=== PATIENT | female | born 1975 ===

== ENCOUNTER 2017-01-13 13:52 | Emergency (ER) | payer MEDICAID ==
[2017-01-13 14:06] VITALS: BP 130/77; PULSE 72; RESP 18; TEMP 98; O2SAT 100
--- NOTE | 2017-01-13 14:20 | ED PDOC ---
HPI: CCC, URI, Sore Throat Time Seen by Provider: 01/13/17 14:07 Chief Complaint (Nursing): Cough, Cold, Congestion Chief Complaint (Provider): Cough History Per: Patient History/Exam Limitations: no limitations Onset/Duration Of Symptoms: Days (x1 week) Associated Symptoms: Fever, Sore Throat, Cough (dry). denies: Sputum Additional Complaint(s): Zora Orellana is a 41 year old female, with a past medical history of migraines , who presents to the emergency department complaining of a dry cough onset for 1 week associated with a sore throat. Patient states that last week she had a fever that peaked at 101.4. She reports to have had sick contact with someone who had the flu. No further medical complaints. PMD: None provided Past Medical History Reviewed: Historical Data, Nursing Documentation, Vital Signs Vital Signs: Last Vital Signs Temp 98 F 01/13/17 14:02 Pulse 72 01/13/17 14:02 Resp 18 01/13/17 14:02 BP 130/77 01/13/17 14:02 Pulse Ox 100 01/13/17 15:49 - Medical History PMH: Migraine - Family History Family History: States: Unknown Family Hx - Immunization History Hx Tetanus Toxoid Vaccination: No Hx Influenza Vaccination: No Hx Pneumococcal Vaccination: No - Home Medications Home Medications: Ambulatory Orders Medication Instructions Recorded Azithromycin [Zithromax] 250 mg PO DAILY #6 cap 01/25/15 Codeine Phos/Phenyleph HCl/P 5 ml PO Q6H #100 syr 01/25/15 [Phenergan Vc W/Codeine 120 ml] Ibuprofen [Motrin] 600 mg PO Q8 #30 tab 04/17/15 Oxycodone HCl/Acetaminophen 1 tab PO Q6 PRN #5 tab 04/17/15 [Percocet 325 mg-5 mg] Acetaminophen with Codeine 1 tab PO DAILY #5 tab 06/30/16 [Tylenol with Codeine No. 3 300 mg-30 mg] Albuterol HFA [Ventolin HFA 90 2 puff IH Q6 #200 puff 01/13/17 mcg/actuation (8 g)] Pseudoephed/Codeine/Guaifen 10 ml PO BID #473 ml 01/13/17 [Coditussin DAC Liquid] - Allergies Allergies/Adverse Reactions: Allergies Allergy/AdvReac Type Severity Reaction Status Date / Time No Known Allergies Allergy Verified 06/30/16 18:30 Review of Systems ROS Statement: Except As Marked, All Systems Reviewed And Found Negative Constitutional: Positive for: Fever ENT: Positive for: Throat Pain Respiratory: Positive for: Cough. Negative for: Sputum Physical Exam - Reviewed Nursing Documentation Reviewed: Yes Vital Signs Reviewed: Yes - Physical Exam Appears: Positive for: Well, Non-toxic, No Acute Distress Head Exam: Positive for: ATRAUMATIC, NORMAL INSPECTION, NORMOCEPHALIC Skin: Positive for: Normal Color, Warm, Dry Eye Exam: Positive for: EOMI, Normal appearance, PERRL ENT: Positive for: Normal ENT Inspection Neck: Positive for: Normal, Painless ROM Cardiovascular/Chest: Positive for: Regular Rate, Rhythm Respiratory: Positive for: Normal Breath Sounds. Negative for: Respiratory Distress Neurologic/Psych: Positive for: Alert, Oriented - ECG O2 Sat by Pulse Oximetry: 100 (RA) Pulse Ox Interpretation: Normal - Radiology X-Ray: Interpreted by Me X-Ray Interpretation: No Acute Disease Medical Decision Making Medical Decision Making: Initial Impression: Cough Initial Plan: --Chest two views (PA/LAT) [RAD] --reevaluation Scribe Attestation: Documented by Ortiz Maynard, acting as a scribe for Myrna STONER. Provider Scribe Attestation: All medical record entries made by the Scribe were at my direction and personally dictated by me. I have reviewed the chart and agree that the record accurately reflects my personal performance of the history, physical exam, medical decision making, and the department course for this patient. I have also personally directed, reviewed, and agree with the discharge instructions and disposition. Disposition - Clinical Impression Clinical Impression: Cough, Bronchitis - Patient ED Disposition Is Patient to be Admitted: No - Disposition Disposition: Routine/Home Disposition Time: 15:10 Condition: STABLE Prescriptions: Albuterol HFA [Ventolin HFA 90 mcg/actuation (8 g)] 2 puff IH Q6 #200 puff Pseudoephed/Codeine/Guaifen [Coditussin DAC Liquid] 10 ml PO BID #473 ml Instructions: Acute Bronchitis (ED) Forms: [employer] ([place])
--- NOTE | 2017-01-13 16:52 | RAD ---
HISTORY: cough COMPARISON: Chest radiographs 01/25/2015 TECHNIQUE: Chest PA and lateral FINDINGS: LUNGS: No active pulmonary disease. PLEURA: No significant pleural effusion identified. No pneumothorax apparent. CARDIOVASCULAR: Normal. OSSEOUS STRUCTURES: No significant abnormalities. VISUALIZED UPPER ABDOMEN: Normal. OTHER FINDINGS: None. IMPRESSION: No acute cardiopulmonary disease identified or significant interval change compared to yes 01/25/2015 radiographs.
== END 2017-01-13 15:15 | disposition home or self-care (01) ==
LOC: H.ER 13:52
DX: J20.9 Acute bronchitis, unspecified (principal)

== ENCOUNTER 2017-07-13 15:33 | Emergency (ER) | payer MEDICAID ==
[2017-07-13 15:39] VITALS: BP 141/75; PULSE 87; RESP 16; TEMP 101; O2SAT 100
--- NOTE | 2017-07-13 17:56 | ED PDOC ---
HPI: CCC, URI, Sore Throat Time Seen by Provider: 07/13/17 16:30 Chief Complaint (Nursing): Flu-like Symptoms Chief Complaint (Provider): Flu-like symptoms History Per: Patient History/Exam Limitations: no limitations Onset/Duration Of Symptoms: Days (x3) Current Symptoms Are (Timing): Still Present Associated Symptoms: Fever, Chills, Cough, Other (body aches) Ear Symptoms: Bilateral: None Additional Complaint(s): Zora Orellana is a 41 year old female, with no significant past medical history , who presents to the emergency department complaining of fever, chills, cough, and body aches onset for x3 days. She denies any sore throat, shortness of breath, chest pain, nausea, vomit, diarrhea, abdominal pain, flank pain, urinary symptoms, recent travel or sick contacts. No further medical complaints. PMD: Candido Larkin Past Medical History Reviewed: Historical Data, Nursing Documentation, Vital Signs Vital Signs: Last Vital Signs Temp 101.0 F H 07/13/17 17:13 Pulse 87 07/13/17 15:37 Resp 16 07/13/17 15:37 BP 141/75 07/13/17 15:37 Pulse Ox 100 07/13/17 18:00 - Medical History PMH: Migraine - Surgical History Surgical History: No Surg Hx - Family History Family History: States: Unknown Family Hx - Social History Alcohol: Social Drugs: Denies - Immunization History Hx Tetanus Toxoid Vaccination: No Hx Influenza Vaccination: No Hx Pneumococcal Vaccination: No - Home Medications Home Medications: Ambulatory Orders Medication Instructions Recorded Azithromycin [Zithromax] 250 mg PO DAILY #6 cap 01/25/15 Codeine Phos/Phenyleph HCl/P 5 ml PO Q6H #100 syr 01/25/15 [Phenergan Vc W/Codeine 120 ml] Ibuprofen [Motrin] 600 mg PO Q8 #30 tab 04/17/15 Oxycodone HCl/Acetaminophen 1 tab PO Q6 PRN #5 tab 04/17/15 [Percocet 325 mg-5 mg] Acetaminophen with Codeine 1 tab PO DAILY #5 tab 06/30/16 [Tylenol with Codeine No. 3 300 mg-30 mg] Albuterol HFA [Ventolin HFA 90 2 puff IH Q6 #200 puff 01/13/17 mcg/actuation (8 g)] Promethazine [Phenergan Syrup] 10 ml PO DAILY #40 ml 01/13/17 Guaifenesin 400 mg PO QID #20 tablet 07/13/17 Ibuprofen [Motrin Tab] 800 mg PO TID PRN #20 tab 07/13/17 - Allergies Allergies/Adverse Reactions: Allergies Allergy/AdvReac Type Severity Reaction Status Date / Time No Known Allergies Allergy Verified 06/30/16 18:30 Review of Systems ROS Statement: Except As Marked, All Systems Reviewed And Found Negative Constitutional: Positive for: Fever, Chills, Other (body aches) ENT: Negative for: Throat Pain Cardiovascular: Negative for: Chest Pain Respiratory: Positive for: Cough. Negative for: Shortness of Breath Gastrointestinal: Negative for: Nausea, Vomiting, Abdominal Pain, Diarrhea Genitourinary Female: Negative for: Dysuria, Frequency, Incontinence Musculoskeletal: Negative for: Back Pain Physical Exam - Reviewed Nursing Documentation Reviewed: Yes Vital Signs Reviewed: Yes - Physical Exam Comments: GENERAL APPEARANCE: Patient is awake, alert, oriented x 3, in mild distress. SKIN: Warm, dry; (-) cyanosis, (-) rash. EYES: (-) conjunctival pallor, (-) scleral icterus, (-) conjunctival hemorrhage. ENMT: Mucous membranes moist. TMs: (-) erythema. Airway patent: (-) stridor. Pharynx: (-) erythema, (-) exudate. NECK: (-) tenderness, (-) stiffness, (-) meningismus, (-) lymphadenopathy. CHEST AND RESPIRATORY: (-) accessory muscle use. Lungs: (-) rales, (-) rhonchi, (-) wheezes, (-) rub; breath sounds equal bilaterally. HEART AND CARDIOVASCULAR: (-) irregularity; (-) murmur, (-) gallop, (-) rub. ABDOMEN AND GI: Soft; (-) tenderness, (-) guarding; (-) organomegaly; (-) mass; (-) CVA tenderness. EXTREMITIES: (-) deformity; (-) cellulitis, (-) lymphangitis; (-) subungual hemorrhage; (-) edema. NEURO AND PSYCH: Mental status as above; (-) focal findings. - ECG O2 Sat by Pulse Oximetry: 100 (RA) Pulse Ox Interpretation: Normal Medical Decision Making Medical Decision Making: Initial Impression: Viral illness Initial Plan: --Chest two views (PA/LAT) [RAD] --Tylenol 325mg tab 975 mg PO --POC Urine --reevaluation CXR : NAD, as read by GE[place]. Patient medicated with motrin PO and guaifenesin PO. CXR results d/w the patient. Dx of influenza d/w the patient advised bedrest, drink plenty of fluids. Advised to follow up with primary care physician in 1-2 days without fail. Advised to take medication as prescribed. Return to the emergency room at any time for any new or worsening symptoms. Patient states she fully agrees with and understands discharge instructions. States that she agrees with the plan and disposition. Verbalized and repeated discharge instructions and plan. I have given the patient opportunity to ask any additional questions. ~ Scribe Attestation: Documented by Ortiz Maynard, acting as a scribe for Nayla Fuller PA-C. Provider Scribe Attestation: All medical record entries made by the Scribe were at my direction and personally dictated by me. I have reviewed the chart and agree that the record accurately reflects my personal performance of the history, physical exam, medical decision making, and the department course for this patient. I have also personally directed, reviewed, and agree with the discharge instructions and disposition. Disposition - Clinical Impression Clinical Impression: Influenza-like symptoms, Cough - Patient ED Disposition Is Patient to be Admitted: No Counseled Patient/Family Regarding: Studies Performed, Diagnosis, Need For Followup, Rx Given - Disposition Disposition: Routine/Home Disposition Time: 18:00 Condition: STABLE Additional Instructions: Thank you for letting us take care of you today. You were treated for fever, cough, likely flu. The emergency medical care you received today was directed at your acute symptoms. If you were prescribed any medication, please fill it and take as directed. It may take several days for your symptoms to resolve. Return to the Emergency Department if your symptoms worsen, do not improve, or if you have any other problems. Please contact your doctor in 2 days for re-evaluation and follow up / or call one of the physicians/clinics you have been referred to that are listed on the Patient Visit Information form that is included in your discharge packet. Bring any paperwork you were given at discharge with you along with any medications you are taking to your follow up visit. Our treatment cannot replace ongoing medical care by a primary care provider (PCP) outside of the emergency department. Thank you for allowing the [employer] [facility] team to be part of your care today. If you had an X-Ray or CT scan: A Radiologist will review the ED reading if any change in treatment is needed we will contact you. 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
[2017-07-13] MEDS ORDERED: guaiFENesin 200 mg/10 ml Syrup UD PO ONE (18:26)
--- NOTE | 2017-07-13 18:27 | RAD ---
HISTORY: Fever. COMPARISON: 01/23/1980 TECHNIQUE: Chest PA and lateral FINDINGS: LUNGS: No active pulmonary disease. PLEURA: No significant pleural effusion identified. No pneumothorax apparent. CARDIOVASCULAR: Normal. OSSEOUS STRUCTURES: No significant abnormalities. VISUALIZED UPPER ABDOMEN: Normal. OTHER FINDINGS: None. IMPRESSION: No active disease. No significant interval change compared to the prior examination(s).
[2017-07-13] MEDS ORDERED: guaiFENesin 100 mg/5 ml Syrup UD ONE (18:44)
== END 2017-07-13 19:40 | disposition home or self-care (01) ==
LOC: H.ER 15:33
DX: J11.1 Influenza due to unidentified influenza virus with other respiratory manifestations (principal)

== ENCOUNTER 2017-07-15 21:38 | Emergency (ER) | payer MEDICAID ==
[2017-07-15 21:58] VITALS: O2SAT 100
[2017-07-15] MEDS ORDERED: Sodium Chloride 0.9% 1,000 ML IV STA (22:12)
--- NOTE | 2017-07-15 22:14 | ED PDOC ---
HPI: Abdomen Time Seen by Provider: 07/15/17 22:01 Chief Complaint (Nursing): Abdominal Pain Chief Complaint (Provider): abdominal pain History Per: Patient History/Exam Limitations: no limitations Onset/Duration Of Symptoms: Days (2) Current Symptoms Are (Timing): Still Present Location Of Pain/Discomfort: Epigastric Associated Symptoms: Diarrhea Additional History Per: Patient Additional Complaint(s): 41 y/o female presents with abdominal pain x 2 days. Associated diarrhea. Patient was seen 2 days ago for fever, cough, congestion and diagnosed with flu- like symptoms and prescribed ibuprofen and mucinex. Patient states pain started after taking an Ibuprofen. Denies vomiting, chest pain, shortness of breath, palpitations, urinary symptoms, recent travel. Past Medical History Reviewed: Historical Data, Nursing Documentation, Vital Signs Vital Signs: Last Vital Signs Temp 99.1 F 07/15/17 21:55 Pulse 71 07/15/17 21:55 Resp 16 07/15/17 21:55 BP 115/68 07/15/17 21:55 Pulse Ox 100 07/16/17 03:10 - Medical History PMH: Gastritis, Migraine - Surgical History Other surgeries: tubal ligation - Family History Family History: States: Unknown Family Hx - Immunization History Hx Tetanus Toxoid Vaccination: No Hx Influenza Vaccination: No Hx Pneumococcal Vaccination: No - Home Medications Home Medications: Ambulatory Orders Medication Instructions Recorded Azithromycin [Zithromax] 250 mg PO DAILY #6 cap 01/25/15 Codeine Phos/Phenyleph HCl/P 5 ml PO Q6H #100 syr 01/25/15 [Phenergan Vc W/Codeine 120 ml] Ibuprofen [Motrin] 600 mg PO Q8 #30 tab 04/17/15 Oxycodone HCl/Acetaminophen 1 tab PO Q6 PRN #5 tab 04/17/15 [Percocet 325 mg-5 mg] Acetaminophen with Codeine 1 tab PO DAILY #5 tab 06/30/16 [Tylenol with Codeine No. 3 300 mg-30 mg] Albuterol HFA [Ventolin HFA 90 2 puff IH Q6 #200 puff 01/13/17 mcg/actuation (8 g)] Promethazine [Phenergan Syrup] 10 ml PO DAILY #40 ml 01/13/17 Guaifenesin 400 mg PO QID #20 tablet 07/13/17 Ibuprofen [Motrin Tab] 800 mg PO TID PRN #20 tab 07/13/17 Dicyclomine [Bentyl] 20 mg PO TID PRN #15 tab 07/16/17 Esomeprazole Magnesium [Nexium] 40 mg PO DAILY #10 capsule. 07/16/17 - Allergies Allergies/Adverse Reactions: Allergies Allergy/AdvReac Type Severity Reaction Status Date / Time No Known Allergies Allergy Verified 06/30/16 18:30 Review of Systems ROS Statement: Except As Marked, All Systems Reviewed And Found Negative Gastrointestinal: Positive for: Abdominal Pain, Diarrhea Physical Exam - Reviewed Nursing Documentation Reviewed: Yes Vital Signs Reviewed: Yes - Physical Exam Appears: Positive for: Well, Non-toxic, No Acute Distress Head Exam: Positive for: ATRAUMATIC, NORMAL INSPECTION, NORMOCEPHALIC Skin: Positive for: Normal Color Eye Exam: Positive for: Normal appearance ENT: Positive for: Normal ENT Inspection Cardiovascular/Chest: Positive for: Regular Rate, Rhythm Respiratory: Positive for: Normal Breath Sounds Gastrointestinal/Abdominal: Positive for: Bowel Sounds, Soft, Tenderness ( epigastric) Back: Positive for: Normal Inspection Extremity: Positive for: Normal ROM Neurologic/Psych: Positive for: Alert, Oriented - Laboratory Results Result Diagrams: 07/15/17 22:35 07/15/17 22:35 - ECG ECG: Positive for: Viewed By Me (reviewed by ED attending) ECG Rhythm: Positive for: Sinus Bradycardia (59bpm) O2 Sat by Pulse Oximetry: 100 - Progress ED Course And Treament: labs, urine, flu, IV fluids, IV pepcid On re-eval, patient still with pain, GI cocktail ordered On re-eval, patient still with epigastric pain. IV phenergan, IV benadryl ordered. Will order CT abd/pelvis EXAM: CT Abdomen and Pelvis With Intravenous Contrast EXAM DATE/TIME: 07/16/2017 1:48 AM CLINICAL HISTORY: 41 years old, female; Pain; Abdominal pain; Epigastric; Prior surgery; Surgery date: 6+ months; Surgery type: Tubal ligation; Additional info: Abd pain TECHNIQUE: Axial computed tomography images of the abdomen and pelvis with intravenous contrast. All CT scans at this facility use one or more dose reduction techniques, viz.: automated exposure control; ma/kV adjustment per patient size (including targeted exams where dose is matched to indication; i.e. head); or iterative reconstruction technique. Coronal and sagittal reformatted images were created and reviewed. CONTRAST: 90 mL of [id number] administered intravenously. COMPARISON: CT - ABD PELVIS IV CONTRAST ONLY 2016-06-30 20:23 FINDINGS: The liver is decreased in attenuation consistent with fatty infiltration. The spleen is prominent. The pancreas is normal. No gallstones. No hydronephrosis or perinephric stranding. Scattered amounts of contrast are noted throughout the small bowel. Colonic diverticulosis is present. There is a small amount of fluid within the right colon, likely an incidental finding although can also associated with diarrhea/enteritis. A normal appendix is identified axial images 108 through 125, coronal images 58 through 66. Ovarian follicles are noted bilaterally. IMPRESSION: Small amount of right colonic fluid as discussed above Patient educated on CT findings, Percocet PO, Bentyl PO ordered On re-eval, patient notes some relief of pain. Patient discharged with rx Nexium , Bentyl. Advised fluids. [place] diet. Follow up GI. Return precautions given. Disposition - Clinical Impression Clinical Impression: Abdominal pain, Viral syndrome - Patient ED Disposition Is Patient to be Admitted: No Counseled Patient/Family Regarding: Studies Performed, Diagnosis, Need For Followup, Rx Given - Disposition Disposition: Routine/Home Disposition Time: 04:02 Condition: IMPROVED Prescriptions: Dicyclomine [Bentyl] 20 mg PO TID PRN #15 tab PRN Reason: Pain, Mild (1-3) Esomeprazole Magnesium [Nexium] 40 mg PO DAILY #10 capsule. Instructions: Viral Syndrome (ED), Abdominal Pain (ED) Forms: [employer] ([employer]), [facility]/Work Excuse
[2017-07-15 22:43] LABS: BASO % 0.6 % (0.0-2.0); EOS % 0.2 % (0.0-4.0); HEMOGLOBIN 14.1 g/dL (12.0-16.0); LYMPH # 1.9 K/uL (1.0-4.3); LYMPH % 48.1 % (20.0-40.0); MEAN CELL VOLUME 88.8 fl (81.0-99.0); MEAN CORPUSCULAR HEMOGLOBIN 30.3 pg (27.0-31.0); MEAN CORPUSCULAR HGB CONC 34.2 g/dL (33.0-37.0); MEAN PLATELET VOLUME 8.9 fl (7.2-11.7); MONO # 0.4 K/uL (0.0-0.8); MONO % 9.4 % (0.0-10.0); NEUT # 1.7 K/uL (1.8-7.0); NEUT % 41.7 % (50.0-75.0); NRBC % 0.1 % (0.0-0.0); RBC 4.66 Mil/uL (3.80-5.20); RED CELL DISTRIBUTION WIDTH 12.8 % (11.5-14.5)
[2017-07-15 22:58] LABS: ALB/GLOB RATIO 1.2 (1.0-2.1); ALT/SGPT 31 U/L (9-52); AST/SGOT 25 U/L (14-36); BLOOD UREA NITROGEN 13 mg/dl (7-17); CALCIUM 8.6 mg/dL (8.4-10.2); GFR AFRICAN-AMERICAN > 60; GFR NON-AFRICAN AMERICAN > 60; LIPASE 46 U/L (23-300)
[2017-07-15] MEDS ORDERED: Potassium Chloride 20 mEq ER Tab PO ONE ×2 (23:02→23:29)
[2017-07-15 23:28] LABS: SQUAMOUS EPITHIAL 15 /hpf (0-5); URINE BACTERIA RARE (<OCC); URINE BILIRUBIN NEGATIVE (NEGATIVE); URINE BLOOD NEGATIVE (NEGATIVE); URINE CLARITY CLOUDY (Clear); URINE COLOR YELLOW (YELLOW); URINE GLUCOSE (UA) NEG (Normal); URINE LEUKOCYTE ESTERASE TRACE Leu/uL (Negative); URINE NITRATE NEGATIVE (NEGATIVE); URINE PROTEIN 30 mg/dL (NEGATIVE); URINE UROBILINOGEN 0.2-1.0 mg/dL (0.2-1.0)
[2017-07-16] MEDS ORDERED: Atrop/Hyos/Scop/PhenoB Elixir PO ONE (00:23)
[2017-07-16] MEDS ORDERED: Alum-Mag Hydrox-Simethicone Susp (30 mL) PO ONE (00:24)
[2017-07-16] MEDS ORDERED: Alum-Mag Hydrox-Simethicone Susp (30 mL) ONE (00:39)
[2017-07-16] MEDS ORDERED: DiphenhydrAMINE 50 mg/ml Inj IVP STA (01:47)
[2017-07-16] MEDS ORDERED: DiphenhydrAMINE 50 mg/ml Inj ONE (01:53)
[2017-07-16] MEDS ORDERED: Iohexol 300 100 ML IJ ONE (01:54)
[2017-07-16] MEDS ORDERED: Sodium Chloride 0.9% 50 ML IV ONE (01:54)
--- NOTE | 2017-07-16 02:50 | CT ---
EXAM: CT Abdomen and Pelvis With Intravenous Contrast EXAM DATE/TIME: 07/16/2017 1:48 AM CLINICAL HISTORY: 41 years old, female; Pain; Abdominal pain; Epigastric; Prior surgery; Surgery date: 6+ months; Surgery type: Tubal ligation; Additional info: Abd pain TECHNIQUE: Axial computed tomography images of the abdomen and pelvis with intravenous contrast. All CT scans at this facility use one or more dose reduction techniques, viz.: automated exposure control; ma/kV adjustment per patient size (including targeted exams where dose is matched to indication; i.e. head); or iterative reconstruction technique. Coronal and sagittal reformatted images were created and reviewed. CONTRAST: 90 mL of administered intravenously. COMPARISON: CT - ABD PELVIS IV CONTRAST ONLY 2016-06-30 20:23 FINDINGS: The liver is decreased in attenuation consistent with fatty infiltration. The spleen is prominent. The pancreas is normal. No gallstones. No hydronephrosis or perinephric stranding. Scattered amounts of contrast are noted throughout the small bowel. Colonic diverticulosis is present. There is a small amount of fluid within the right colon, likely an incidental finding although can also associated with diarrhea/enteritis. A normal appendix is identified axial images 108 through 125, coronal images 58 through 66. Ovarian follicles are noted bilaterally. IMPRESSION: Small amount of right colonic fluid as discussed above.
[2017-07-16] MEDS ORDERED: Oxycodone/Acetaminophen 5/325 mg Tab PO ONE (03:09)
[2017-07-16] MEDS ORDERED: Oxycodone/Acetaminophen 5/325 mg Tab ONE (03:16)
[2017-07-16 04:17] VITALS: BP 121/69; PULSE 84; RESP 17; TEMP 98.3
--- NOTE | 2017-07-16 12:26 | CARD ---
APPROVED REPORT EKG Measurement Heart [id number] ID [id number] <Conclusion> Sinus bradycardia Otherwise normal ECG
== END 2017-07-16 04:00 | disposition home or self-care (01) ==
LOC: H.ER 21:38
DX: B34.9 Viral infection, unspecified (principal)
CPT/HCPCS: 74177; 80053; 81003; 81025; 83690; 85025; 87804; 93005; 96361; 96374; 96375; 99284; J1200; J1885; J2550; J7040; Q9967

== ENCOUNTER 2017-07-17 17:20 | Observation (INO) | payer MEDICAID ==
[2017-07-17] MEDS ORDERED: Morphine 4 MG/ML VIAL IVP STA (19:20)
[2017-07-17] MEDS ORDERED: Iohexol 240 (50 ml) PO ONE (19:20)
[2017-07-17] MEDS ORDERED: Sodium Chloride 0.9% 1,000 ML IV STA (19:22)
--- NOTE | 2017-07-17 19:41 | ED PDOC ---
HPI: Abdomen Time Seen by Provider: 07/17/17 19:16 Chief Complaint (Nursing): Abdominal Pain Chief Complaint (Provider): Epigastric Abdominal Pain History Per: Patient History/Exam Limitations: no limitations Onset/Duration Of Symptoms: Days (4 days ago) Current Symptoms Are (Timing): Still Present Location Of Pain/Discomfort: Epigastric Additional Complaint(s): 41 yo female presents to the ED for her third visit this week, complaining of continued epigastric pain and discomfort, onset of 4 days. Patient reports that her vomiting has resolved, but her diarrhea continues and "looked darker than normal". She denies any fever, chills, vaginal bleeding/discharge, or urinary symptoms. Past Medical History Reviewed: Historical Data Vital Signs: Last Vital Signs Temp 97.2 F L 07/17/17 17:39 Pulse 52 L 07/17/17 22:37 Resp 16 07/17/17 22:37 BP 140/83 07/17/17 22:37 Pulse Ox 100 07/17/17 22:37 - Medical History PMH: Gastritis, Migraine - Surgical History Surgical History: No Surg Hx - Family History Family History: States: Unknown Family Hx - Social History Current smoker - smoking cessation education provided: No Ex-Smoker (has not smoked in the last 12 months): No Alcohol: None Drugs: Denies - Immunization History Hx Tetanus Toxoid Vaccination: No Hx Influenza Vaccination: No Hx Pneumococcal Vaccination: No - Home Medications Home Medications: Ambulatory Orders Medication Instructions Recorded Azithromycin [Zithromax] 250 mg PO DAILY #6 cap 01/25/15 Codeine Phos/Phenyleph HCl/P 5 ml PO Q6H #100 syr 01/25/15 [Phenergan Vc W/Codeine 120 ml] Ibuprofen [Motrin] 600 mg PO Q8 #30 tab 04/17/15 Oxycodone HCl/Acetaminophen 1 tab PO Q6 PRN #5 tab 04/17/15 [Percocet 325 mg-5 mg] Acetaminophen with Codeine 1 tab PO DAILY #5 tab 06/30/16 [Tylenol with Codeine No. 3 300 mg-30 mg] RX: Albuterol HFA [Ventolin HFA 90 2 puff IH Q6 #200 puff 01/13/17 mcg/actuation (8 g)] RX: Promethazine [Phenergan Syrup] 10 ml PO DAILY #40 ml 01/13/17 RX: Guaifenesin 400 mg PO QID #20 tablet 07/13/17 RX: Ibuprofen [Motrin Tab] 800 mg PO TID PRN #20 tab 07/13/17 Dicyclomine [Bentyl] 20 mg PO TID PRN #15 tab 07/16/17 Esomeprazole Magnesium [Nexium] 40 mg PO DAILY #10 capsule. 07/16/17 - Allergies Allergies/Adverse Reactions: Allergies Allergy/AdvReac Type Severity Reaction Status Date / Time No Known Allergies Allergy Verified 07/17/17 17:38 Review of Systems ROS Statement: Except As Marked, All Systems Reviewed And Found Negative Constitutional: Negative for: Fever, Chills Gastrointestinal: Positive for: Abdominal Pain (epigastric ), Diarrhea. Negative for: Vomiting Genitourinary Female: Negative for: Dysuria, Frequency, Incontinence, Hematuria , Vaginal Discharge, Vaginal Bleeding Physical Exam - Reviewed Nursing Documentation Reviewed: Yes Vital Signs Reviewed: Yes - Physical Exam Appears: Positive for: Well, Non-toxic, No Acute Distress Head Exam: Positive for: ATRAUMATIC, NORMAL INSPECTION, NORMOCEPHALIC Skin: Positive for: Normal Color, Warm, DRY Eye Exam: Positive for: EOMI, Normal appearance, PERRL ENT: Positive for: Normal ENT Inspection Neck: Positive for: Normal, Painless ROM Cardiovascular/Chest: Positive for: Regular Rate, Rhythm. Negative for: Murmur Respiratory: Positive for: Normal Breath Sounds. Negative for: Respiratory Distress Gastrointestinal/Abdominal: Positive for: Soft, Tenderness (epigastric ). 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 Negative for: Pedal Edema, Deformity Neurologic/Psych: Positive for: Alert, Oriented. Negative for: Motor/Sensory Deficits - Laboratory Results Result Diagrams: 07/17/17 20:24 07/17/17 20:24 - ECG O2 Sat by Pulse Oximetry: 100 (RA) Pulse Ox Interpretation: Normal Medical Decision Making Medical Decision Making: Time: --19:21 Impression: --gastritis vs gallbladder problem vs pancreatitis vs. enteritis Plan: --VBG Shock panel --CT ABD Pelvis PO&IV contrast --ECG --Labs --DRug screen, urine --lipase --ED Urine Dip --ED Urine Preg --Iohexol 50ml OI'Nirogube 4mg IVP --IV fluids --pantoprazole 40mg IVP --Urinalysis --Gallbladder &Pancreas Ultrasound Reassess --21:12 EXAM: US Abdomen Limited, Right Upper Quadrant FINDINGS: Liver: Fatty infiltration. No mass. No intrahepatic ductal dilatation. Gallbladder: No gallstones. No wall thickening. No pericholecystic fluid. No sonographic Garcia's sign. Common bile duct: No dilatation. No stones. Pancreas: Unremarkable as visualized. Right kidney: Normal echogenicity. No hydronephrosis. IMPRESSION: 1. No acute findings. 2. Non-acute findings are described above. Thank you for allowing us to participate in the care of your patient. 1030PM Patient reports not relief from PPI or Morphine. Urine + for cannabinoids, states that she used yesterday. Possibly cannabinoid induced abd pain and diarrhea (although vomiting has resolved). Will try 2.5 haldol IV while patient on monitor. 0000 COMPARISON: CT - ABD PELVIS IV CONTRAST ONLY 2017-07-16 02:00 FINDINGS: Lower thorax: Minimal atelectasis/scarring. ABDOMEN: Liver: Fatty infiltration. Gallbladder and bile ducts: No calcified stones. No ductal dilation. Pancreas: No ductal dilation. No mass. Spleen: No splenomegaly. Adrenals: No mass. Kidneys and ureters: No mass. No hydronephrosis. Stomach and bowel: Few scattered diverticula within colon. No associated inflammatory stranding. Mild mural thickening vs underdistention of descending, sigmoid colon. No associated inflammatory stranding. No obstruction. Appendix: Normal caliber. No inflammation. PELVIS: Bladder: Unremarkable. Reproductive: Small ovarian follicles. LOBO ROBBINS | Final Radiology Report CONFIDENTIALITY STATEMENT This report is intended only for use by the referring physician, and only in accordance with law. If you received this in error, call [phone]. Page 2 of 2 ABDOMEN and PELVIS: Intraperitoneal space: No significant fluid collection. No free air. Bones/joints: No acute fracture. Soft tissues: Small umbilical hernia containing fat. Vasculature: Unremarkable. No aneurysm. Lymph nodes: No pathologically enlarged lymph nodes. IMPRESSION: 1. Mild colitis versus underdistention. Clinical correlation is needed. 2. Incidental/non-acute findings are described above Patient reports mild improvement in symptoms but still having frequent diarrhea. GI to consult on patient in morning. Will give IVF and another dose of haldol. Dr. Mathis aware. Scribe Attestation: Documented by Darnell Ballard acting as a scribe for Rey Owens MD. Provider Attestation: All medical record entries made by the Scribe were at my direction and personally dictated by me. I have reviewed the chart and agree that the record accurately reflects my personal performance of the history, physical exam, medical decision making, and the department course for this patient. I have also personally directed, reviewed, and agree with the discharge instructions and disposition. Disposition - Clinical Impression Clinical Impression: Abdominal pain, Diarrhea, Dehydration - Patient ED Disposition Is Patient to be Admitted: Yes - Disposition Disposition Time: 00:45 Condition: IMPROVED Forms: [facility] (Russian)
[2017-07-17 20:29] LABS: BASO % 0.4 % (0.0-2.0); EOS % 0.6 % (0.0-4.0); HEMOGLOBIN 13.2 g/dL (12.0-16.0); LYMPH # 2.5 K/uL (1.0-4.3); LYMPH % 63.8 % (20.0-40.0); MEAN CELL VOLUME 89.4 fl (81.0-99.0); MEAN CORPUSCULAR HEMOGLOBIN 29.6 pg (27.0-31.0); MEAN CORPUSCULAR HGB CONC 33.1 g/dL (33.0-37.0); MEAN PLATELET VOLUME 8.5 fl (7.2-11.7); MONO # 0.3 K/uL (0.0-0.8); MONO % 6.9 % (0.0-10.0); NEUT # 1.1 K/uL (1.8-7.0); NEUT % 28.3 % (50.0-75.0); NRBC % 0.1 % (0.0-0.0); RBC 4.47 Mil/uL (3.80-5.20); RED CELL DISTRIBUTION WIDTH 12.8 % (11.5-14.5)
[2017-07-17 20:29] LABS: VENOUS BLOOD GAS BASE EXCESS 3.9 mmol/L (0.0-2.0); VENOUS BLOOD GAS PCO2 51 mmHg (40-60); VENOUS BLOOD GAS PO2 25 mm/Hg (30-55); VENOUS BLOOD PH 7.38 (7.32-7.43)
[2017-07-17] MEDS ORDERED: Morphine 4 MG/ML VIAL ONE (20:29)
[2017-07-17] MEDS ORDERED: Iohexol 240 (50 ml) ONE (20:29)
[2017-07-17 20:41] LABS: ALB/GLOB RATIO 1.3 (1.0-2.1); ALBUMIN 3.9 g/dL (3.5-5.0); ALT/SGPT 36 U/L (9-52); AST/SGOT 22 U/L (14-36); BLOOD UREA NITROGEN 9 mg/dl (7-17); CALCIUM 8.5 mg/dL (8.4-10.2); GFR AFRICAN-AMERICAN > 60; GFR NON-AFRICAN AMERICAN > 60; LIPASE 41 U/L (23-300)
[2017-07-17 21:00] LABS: BENZODIAZEPINES, UR NEGATIVE (NEGATIVE); OPIATES, UR NEGATIVE (NEGATIVE); PHENCYCLIDINE, UR NEGATIVE (NEGATIVE)
[2017-07-17] MEDS ORDERED: Iohexol 300 100 ML IJ ONE (21:04)
[2017-07-17] MEDS ORDERED: Sodium Chloride 0.9% 50 ML IV ONE (21:05)
--- NOTE | 2017-07-17 21:13 | US ---
EXAM: US Abdomen Limited, Right Upper Quadrant CLINICAL HISTORY: 41 years old, female; Pain; Abdominal pain; Epigastric; Additional info: Epig pain TECHNIQUE: Real-time ultrasound of the right upper quadrant with image documentation. COMPARISON: CT - ABD PELVIS IV CONTRAST ONLY 2017-07-16 02:00 FINDINGS: Liver: Fatty infiltration. No mass. No intrahepatic ductal dilatation. Gallbladder: No gallstones. No wall thickening. No pericholecystic fluid. No sonographic Garcia's sign. Common bile duct: No dilatation. No stones. Pancreas: Unremarkable as visualized. Right kidney: Normal echogenicity. No hydronephrosis. IMPRESSION: 1.No acute findings. 2.Non-acute findings are described above.
[2017-07-17 21:30] LABS: BARBITURATES, UR POSITIVE (NEGATIVE)
[2017-07-17 21:51] LABS: URINE CLARITY CLEAR (Clear); URINE COLOR YELLOW (YELLOW)
[2017-07-17 21:52] LABS: PH,URINE 5.5 (5.0-8.0); SQUAMOUS EPITHIAL 2 /hpf (0-5); URINE BACTERIA FEW (<OCC); URINE BILIRUBIN NEGATIVE (NEGATIVE); URINE BLOOD NEGATIVE (NEGATIVE); URINE GLUCOSE (UA) NEG (Normal); URINE HYALINE CAST 1 /hpf (0-2); URINE LEUKOCYTE ESTERASE NEG Leu/uL (Negative); URINE NITRATE NEGATIVE (NEGATIVE); URINE PROTEIN 30 mg/dL (NEGATIVE); URINE UROBILINOGEN 0.2 mg/dL (0.2-1.0)
--- NOTE | 2017-07-18 00:25 | CT ---
EXAM: CT Abdomen and Pelvis With Intravenous Contrast CLINICAL HISTORY: 41 years old, female; Pain; Abdominal pain; Epigastric; Patient HX: See phys doc; Additional info: Worsening epigastric pain TECHNIQUE: Axial computed tomography images of the abdomen and pelvis with intravenous contrast. All CT scans at this facility use one or more dose reduction techniques, viz.: automated exposure control; ma/kV adjustment per patient size (including targeted exams where dose is matched to indication; i.e. head); or iterative reconstruction technique. Coronal and sagittal reformatted images were created and reviewed. CONTRAST: 90 mL of omni 300 administered intravenously. COMPARISON: CT - ABD PELVIS IV CONTRAST ONLY 2017-07-16 02:00 FINDINGS: Lower thorax: Minimal atelectasis/scarring. ABDOMEN: Liver: Fatty infiltration. Gallbladder and bile ducts: No calcified stones. No ductal dilation. Pancreas: No ductal dilation. No mass. Spleen: No splenomegaly. Adrenals: No mass. Kidneys and ureters: No mass. No hydronephrosis. Stomach and bowel: Few scattered diverticula within colon. No associated inflammatory stranding. Mild mural thickening vs underdistention of descending, sigmoid colon. No associated inflammatory stranding. No obstruction. Appendix: Normal caliber. No inflammation. PELVIS: Bladder: Unremarkable. Reproductive: Small ovarian follicles. ABDOMEN and PELVIS: Intraperitoneal space: No significant fluid collection. No free air. Bones/joints: No acute fracture. Soft tissues: Small umbilical hernia containing fat. Vasculature: Unremarkable. No aneurysm. Lymph nodes: No pathologically enlarged lymph nodes. IMPRESSION: 1. Mild colitis versus underdistention. Clinical correlation is needed. 2. Incidental/non-acute findings are described above.
[2017-07-18] MEDS ORDERED: Sodium Chloride 0.9% 1,000 ML IV STA (00:43)
--- NOTE | 2017-07-18 07:07 | CP.PCM.CON ---
<Slime Cooper - Last Filed: 07/18/17 14:04> History of Present Illness - History of Present Illness History of Present Illness: GI Fellow PGY4 Consult Note This is a 41yF with pmhx of migraine headaches presenting to the ER with complaints of abdominal pain and dark loose stools for 4 days. Pt reports her pain is epigastric, dull to sharp in nature,non radiating associated with nausea or vomiting which has now resolved. Pt reports she is also having loose stools and its dark in color but denies melena or hematochezia. Pt was in the ER twice prior this week, once for flu like symptoms for which she was given ibuprofen and then for abdominal pain and she was discharged on bentyl and nexium and presented one day after reporting no improved symptoms. Per the ER attending, rectal exam was negative with brown stool and no fevers, labs all with in normal limits. Abdominal US negative for gallbladder pathology and 2 CT imaging with one showing some right colonic fluid likely from diarrhea and next day mild sigmoid colitis vs underdistention, colonic diverticulosis. Pt's UDS was positive for Cannabis and pt smokes regularly. No recent travel, sick contacts, or abx use. Pt has a hx of H.pylori dx on EGD 2 yrs ago and treated with eradication with primary GI doctor which she has a follow up appointment with in 1 week. ROS: A 12pt ROS was negative except as above PmHx: As stated in HPI PsHx: None SHx: Positive for tobacco, cannibis, negative for etoh FHx: Neg for colon cancer Past Patient History - Infectious Disease Hx of Infectious Diseases: None - Past Medical History & Family History Past Medical History?: Yes - Past Social History Smoking Status: Current Some Days Smoker - CARDIAC Hx Cardiac Disorders: No - PULMONARY Hx Respiratory Disorders: No - NEUROLOGICAL Hx Neurological Disorder: Yes Hx Migraine: Yes - HEENT Hx HEENT Problems: No - RENAL Hx Chronic Kidney Disease: No - ENDOCRINE/METABOLIC Hx Endocrine Disorders: No - HEMATOLOGICAL/ONCOLOGICAL Hx Blood Disorders: No - INTEGUMENTARY Hx Dermatological Problems: No - MUSCULOSKELETAL/RHEUMATOLOGICAL Hx Musculoskeletal Disorders: No Hx Falls: No - GASTROINTESTINAL Hx Gastrointestinal Disorders: Yes Hx Gastritis: Yes - GENITOURINARY/GYNECOLOGICAL Hx Genitourinary Disorders: No - PSYCHIATRIC Hx Psychophysiologic Disorder: Yes Hx Substance Use: Yes (Weeds) - SURGICAL HISTORY Hx Surgeries: Yes Hx Tubal Ligation: Yes - ANESTHESIA Hx Anesthesia: Yes Hx Anesthesia Reactions: No Hx Malignant Hyperthermia: No Has any member of the family had a problem w/ anesthesia?: No Meds Allergies/Adverse Reactions: Allergies Allergy/AdvReac Type Severity Reaction Status Date / Time No Known Allergies Allergy Verified 07/17/17 17:38 - Medications Medications: Current Medications Sodium Chloride (Sodium Chloride 0.9%) 1,000 mls @ 150 mls/hr IV .Q6H40M STA Stop: 07/18/17 07:22 Last Admin: 07/18/17 01:44 Dose: 150 mls/hr Pantoprazole Sodium (Protonix Inj) 40 mg IVP DAILY HERMES Physical Exam - Constitutional Appears: Non-toxic, No Acute Distress - Head Exam Head Exam: ATRAUMATIC, NORMAL INSPECTION, NORMOCEPHALIC - Eye Exam Eye Exam: EOMI, Normal appearance, PERRL - ENT Exam ENT Exam: Mucous Membranes Moist - Respiratory Exam Respiratory Exam: Clear to Auscultation Bilateral, NORMAL BREATHING PATTERN - Cardiovascular Exam Cardiovascular Exam: REGULAR RHYTHM - GI/Abdominal Exam GI & Abdominal Exam: Normal Bowel Sounds, Soft, Tenderness. absent: Distended, Guarding, Organomegaly - Extremities Exam Extremities exam: Positive for: normal inspection - Back Exam Back exam: NORMAL INSPECTION - Neurological Exam Neurological exam: Alert, Oriented x3 - Psychiatric Exam Psychiatric exam: Normal Affect, Normal Mood - Skin Skin Exam: Dry, Intact, Normal Color, Warm Results - Vital Signs Recent Vital Signs: Last Vital Signs Temp 97.5 F L 07/18/17 02:45 Pulse 61 07/18/17 02:45 Resp 19 07/18/17 02:45 BP 127/83 07/18/17 02:45 Pulse Ox 100 07/18/17 02:45 - Labs Result Diagrams: 07/17/17 20:24 07/17/17 20:24 Labs: Laboratory Results - last 24 hr 07/17/17 07/17/17 07/17/17 20:23 20:24 20:24 WBC 4.0 L RBC 4.47 Hgb 13.2 Hct 40.0 MCV 89.4 MCH 29.6 MCHC 33.1 RDW 12.8 Plt Count 178 MPV 8.5 Neut % (Auto) 28.3 L Lymph % (Auto) 63.8 H [place] % (Auto) 6.9 Eos % (Auto) 0.6 Baso % (Auto) 0.4 Neut # (Auto) 1.1 L Lymph # (Auto) 2.5 [place] # (Auto) 0.3 Eos # (Auto) 0.0 Baso # (Auto) 0.0 pO2 25 L VBG pH 7.38 VBG pCO2 51 VBG HCO3 26.5 VBG Total CO2 31.8 H VBG O2 Sat (Calc) 57.0 VBG Base Excess 3.9 H VBG Potassium 3.5 L Sodium 142.0 146 Chloride 105.0 102 Glucose 87 Lactate 1.1 FiO2 21.0 Potassium 3.6 Carbon Dioxide 29 Anion Gap 19 BUN 9 Creatinine 0.7 Est GFR ( Amer) > 60 Est GFR (Non-Af Amer) > 60 Random Glucose 89 Calcium 8.5 Total Bilirubin 0.5 AST 22 ALT 36 Alkaline Phosphatase 49 Total Protein 6.9 Albumin 3.9 Globulin 3.0 Albumin/Globulin Ratio 1.3 Lipase 41 Venous Blood Potassium 3.5 L Urine Color Urine Clarity Urine pH Ur Specific [place] Urine Protein Urine Glucose (UA) Urine Ketones Urine Blood Urine Nitrate Urine Bilirubin Urine Urobilinogen Ur Leukocyte Esterase Urine RBC (Auto) Urine Microscopic WBC Ur Squamous Epith Cells Urine Bacteria Hyaline Casts Stool Occult Blood Urine Opiates Screen Urine Methadone Screen Ur Barbiturates Screen Ur Phencyclidine Scrn Ur Amphetamines Screen U Benzodiazepines Scrn U Oth Cocaine Metabols U Cannabinoids Screen 07/17/17 07/17/17 20:38 21:00 WBC RBC Hgb Hct MCV MCH MCHC RDW Plt Count MPV Neut % (Auto) Lymph % (Auto) [place] % (Auto) Eos % (Auto) Baso % (Auto) Neut # (Auto) Lymph # (Auto) [place] # (Auto) Eos # (Auto) Baso # (Auto) pO2 VBG pH VBG pCO2 VBG HCO3 VBG Total CO2 VBG O2 Sat (Calc) VBG Base Excess VBG Potassium Sodium Chloride Glucose Lactate FiO2 Potassium Carbon Dioxide Anion Gap BUN Creatinine Est GFR ( Amer) Est GFR (Non-Af Amer) Random Glucose Calcium Total Bilirubin AST ALT Alkaline Phosphatase Total Protein Albumin Globulin Albumin/Globulin Ratio Lipase Venous Blood Potassium Urine Color Yellow Urine Clarity Clear Urine pH 5.5 Ur Specific [place] >= 1.030 Urine Protein 30 Urine Glucose (UA) Neg Urine Ketones Negative Urine Blood Negative Urine Nitrate Negative Urine Bilirubin Negative Urine Urobilinogen 0.2 Ur Leukocyte Esterase Neg Urine RBC (Auto) < 1 Urine Microscopic WBC < 1 Ur Squamous Epith Cells 2 Urine Bacteria Few H Hyaline Casts 1 Stool Occult Blood Negative Urine Opiates Screen Negative Urine Methadone Screen Negative Ur Barbiturates Screen Positive H Ur Phencyclidine Scrn Negative Ur Amphetamines Screen Negative U Benzodiazepines Scrn Negative U Oth Cocaine Metabols Negative U Cannabinoids Screen Positive H Assessment & Plan - Assessment and Plan (Free Text) Assessment: This is a 41yF presenting with epigastric abdominal pain and loose stools. 1. Abdominal pain ddx gastritis, PUD, cannabis induced hyperemesis, viral gastroenteritis 2. Diarrhea-likely infectious etiology Plan: -Continue supportive care with pain control and antiemetics - IVF hydration - Clear liquid diet - Stool studies to r/o infectious etiology - Avoid NSAIDs - Discussed cessation of Cannabis as can cause abdominal pain, N/V - CT imaging reviewed no signs of acute GI pathology, no fevers, no WBC, no indication for abx - Continue PPI po daily for 6-8 weeks and if no improvement follow up outpt for EGD - Continue carafate - Pt can follow up with primary Gi doctor as an oupt for possible repeat EGD to r/o H.pylori. <Tomas DAVID,Moisés - Last Filed: 07/18/17 16:14> Meds - Medications Medications: Current Medications Ondansetron HCl (Zofran Inj) 4 mg IVP Q6 PRN PRN Reason: Nausea/Vomiting Pantoprazole Sodium (Protonix Inj) 40 mg IVP DAILY [facility] Last Admin: 07/18/17 11:09 Dose: Not Given Sucralfate (Carafate Oral Susp) 1 gm PO QID [facility] Last Admin: 07/18/17 12:44 Dose: 1 gm Results - Vital Signs Recent Vital Signs: Last Vital Signs Temp 98.9 F 07/18/17 15:59 Pulse 58 L 07/18/17 15:59 Resp 18 07/18/17 15:59 BP 128/80 07/18/17 15:59 Pulse Ox 100 07/18/17 15:59 - Labs Result Diagrams: 07/17/17 20:24 07/17/17 20:24 Labs: Laboratory Results - last 24 hr 0207/17/17 07/17/17 20:23 20:24 20:24 WBC 4.0 L RBC 4.47 Hgb 13.2 Hct 40.0 MCV 89.4 MCH 29.6 MCHC 33.1 RDW 12.8 Plt Count 178 MPV 8.5 Neut % (Auto) 28.3 L Lymph % (Auto) 63.8 H [place] % (Auto) 6.9 Eos % (Auto) 0.6 Baso % (Auto) 0.4 Neut # (Auto) 1.1 L Lymph # (Auto) 2.5 [place] # (Auto) 0.3 Eos # (Auto) 0.0 Baso # (Auto) 0.0 pO2 25 L VBG pH 7.38 VBG pCO2 51 VBG HCO3 26.5 VBG Total CO2 31.8 H VBG O2 Sat (Calc) 57.0 VBG Base Excess 3.9 H VBG Potassium 3.5 L Sodium 142.0 146 Chloride 105.0 102 Glucose 87 Lactate 1.1 FiO2 21.0 Potassium 3.6 Carbon Dioxide 29 Anion Gap 19 BUN 9 Creatinine 0.7 Est GFR ( Amer) > 60 Est GFR (Non-Af Amer) > 60 Random Glucose 89 Calcium 8.5 Total Bilirubin 0.5 AST 22 ALT 36 Alkaline Phosphatase 49 Total Protein 6.9 Albumin 3.9 Globulin 3.0 Albumin/Globulin Ratio 1.3 Lipase 41 Venous Blood Potassium 3.5 L Urine Color Urine Clarity Urine pH Ur Specific [place] Urine Protein Urine Glucose (UA) Urine Ketones Urine Blood Urine Nitrate Urine Bilirubin Urine Urobilinogen Ur Leukocyte Esterase Urine RBC (Auto) Urine Microscopic WBC Ur Squamous Epith Cells Urine Bacteria Hyaline Casts Stool Occult Blood Urine Opiates Screen Urine Methadone Screen Ur Barbiturates Screen Ur Phencyclidine Scrn Ur Amphetamines Screen U Benzodiazepines Scrn U Oth Cocaine Metabols U Cannabinoids Screen C. difficile Ag & Toxin 07/17/17 07/17/17 07/18/17 20:38 21:00 09:00 WBC RBC Hgb Hct MCV MCH MCHC RDW Plt Count MPV Neut % (Auto) Lymph % (Auto) [place] % (Auto) Eos % (Auto) Baso % (Auto) Neut # (Auto) Lymph # (Auto) [place] # (Auto) Eos # (Auto) Baso # (Auto) pO2 VBG pH VBG pCO2 VBG HCO3 VBG Total CO2 VBG O2 Sat (Calc) VBG Base Excess VBG Potassium Sodium Chloride Glucose Lactate FiO2 Potassium Carbon Dioxide Anion Gap BUN Creatinine Est GFR ( Amer) Est GFR (Non-Af Amer) Random Glucose Calcium Total Bilirubin AST ALT Alkaline Phosphatase Total Protein Albumin Globulin Albumin/Globulin Ratio Lipase Venous Blood Potassium Urine Color Yellow Urine Clarity Clear Urine pH 5.5 Ur Specific [place] >= 1.030 Urine Protein 30 Urine Glucose (UA) Neg Urine Ketones Negative Urine Blood Negative Urine Nitrate Negative Urine Bilirubin Negative Urine Urobilinogen 0.2 Ur Leukocyte Esterase Neg Urine RBC (Auto) < 1 Urine Microscopic WBC < 1 Ur Squamous Epith Cells 2 Urine Bacteria Few H Hyaline Casts 1 Stool Occult Blood Negative Urine Opiates Screen Negative Urine Methadone Screen Negative Ur Barbiturates Screen Positive H Ur Phencyclidine Scrn Negative Ur Amphetamines Screen Negative U Benzodiazepines Scrn Negative U Oth Cocaine Metabols Negative U Cannabinoids Screen Positive H C. difficile Ag & Toxin Negative Attending/Attestation - Attestation I have personally seen and examined this patient.: Yes I have fully participated in the care of the patient.: Yes I have reviewed all pertinent clinical information: Yes Notes (Text): 07/18/17 16:12 This is a 41 yr old F presenting with epigastric abdominal pain and loose stools which is resolving. Her symptoms started with cough and flu like symptoms and transitioned to abdominal paina nd diarrhea. Likely viral gastroenteritis. Continue supportive care and diet as tolerated. C difficile negative. No s/s of SIRS. Avoid NSAID's. Continue carafate. Has history of H pylori treated in 2013. has appointment with Dr Comer on 07/26. Can follow with him as outpatient.
--- NOTE | 2017-07-18 10:30 | CARD ---
APPROVED REPORT EKG Measurement Heart [id number] <Conclusion> Sinus bradycardia Otherwise normal ECG
[2017-07-18 10:46] LABS: C DIFF TOXIN A B NEGATIVE (NEGATIVE)
[2017-07-18] MEDS: Sucralfate 1 gm/10 ml Oral Susp UD PO SCH ×3 (12:44→21:47)
[2017-07-18 16:00] VITALS: O2SAT 100
[2017-07-18] MEDS ORDERED: guaiFENesin DM 200 mg-20 mg/10 ml UD PO PRN (18:46)
[2017-07-18 19:48] LABS: FECAL LEUKOCYTES NEGATIVE (NEGATIVE)
[2017-07-19 08:05] VITALS: BP 125/77; PULSE 56; RESP 20; TEMP 98.4
[2017-07-19 08:13] LABS: HEMOGLOBIN 12.6 g/dL (12.0-16.0); MEAN CELL VOLUME 88.3 fl (81.0-99.0); MEAN CORPUSCULAR HEMOGLOBIN 29.8 pg (27.0-31.0); MEAN CORPUSCULAR HGB CONC 33.8 g/dL (33.0-37.0); RBC 4.24 Mil/uL (3.80-5.20); RED CELL DISTRIBUTION WIDTH 12.4 % (11.5-14.5); WHITE BLOOD COUNT 4.5 K/uL (4.8-10.8)
[2017-07-19 08:30] LABS: BLOOD UREA NITROGEN 7 mg/dl (7-17); CALCIUM 8.5 mg/dL (8.4-10.2); GFR AFRICAN-AMERICAN > 60; GFR NON-AFRICAN AMERICAN > 60
[2017-07-19] MEDS: Sucralfate 1 gm/10 ml Oral Susp UD PO SCH ×2 (08:37→12:15)
--- NOTE | 2017-07-19 11:49 | CP.PCM.HP ---
History of Present Illness - History of Present Illness History of Present Illness: This is a 41 y/o female with hx of gastritis and H pylori treated 2 years ago who presented t ER with acute abdominal pain, mostly epigastric, She also claims that for the past 24 hrs she has been vomiting and had three episodes of loose stools prior to Er visit. She was so fatigued and complains of abdominal pain not relieved by IV pain meds hence admitted for intractable abd pain. US and CT scan showed some thickening of the colon prob from diarrhea. But patient does not complain of lower abd pain. She was noted to be positive for cannabinoids. Present on Admission - Present on Admission Any Indicators Present on Admission: No History of DVT/PE: No History of Uncontrolled Diabetes: No Urinary Catheter: No Decubitus Ulcer Present: No Review of Systems - Gastrointestinal Gastrointestinal: Abdominal Pain Past Patient History - Infectious Disease Hx of Infectious Diseases: None - Past Medical History & Family History Past Medical History?: Yes - Past Social History Smoking Status: Current Some Days Smoker - CARDIAC Hx Cardiac Disorders: No - PULMONARY Hx Respiratory Disorders: No - NEUROLOGICAL Hx Neurological Disorder: Yes Hx Migraine: Yes - HEENT Hx HEENT Problems: No - RENAL Hx Chronic Kidney Disease: No - ENDOCRINE/METABOLIC Hx Endocrine Disorders: No - HEMATOLOGICAL/ONCOLOGICAL Hx Blood Disorders: No - INTEGUMENTARY Hx Dermatological Problems: No - MUSCULOSKELETAL/RHEUMATOLOGICAL Hx Musculoskeletal Disorders: No Hx Falls: No - GASTROINTESTINAL Hx Gastrointestinal Disorders: Yes Hx Gastritis: Yes - GENITOURINARY/GYNECOLOGICAL Hx Genitourinary Disorders: No - PSYCHIATRIC Hx Psychophysiologic Disorder: Yes Hx Substance Use: Yes (Weeds) - SURGICAL HISTORY Hx Surgeries: Yes Hx Tubal Ligation: Yes - ANESTHESIA Hx Anesthesia: Yes Hx Anesthesia Reactions: No Hx Malignant Hyperthermia: No Has any member of the family had a problem w/ anesthesia?: No Meds Allergies/Adverse Reactions: Allergies Allergy/AdvReac Type Severity Reaction Status Date / Time No Known Allergies Allergy Verified 07/17/17 17:38 Physical Exam - Head Exam Head Exam: NORMAL INSPECTION - Eye Exam Eye Exam: Normal appearance - ENT Exam ENT Exam: Mucous Membranes Moist - Respiratory Exam Respiratory Exam: Clear to Auscultation Bilateral - Cardiovascular Exam Cardiovascular Exam: REGULAR RHYTHM - GI/Abdominal Exam GI & Abdominal Exam: Normal Bowel Sounds, Tenderness - Neurological Exam Neurological exam: CN II-XII Intact, Oriented x3 Results - Vital Signs Recent Vital Signs: Last Vital Signs Temp 98.4 F 07/19/17 08:05 Pulse 56 L 07/19/17 08:05 Resp 20 07/19/17 08:05 BP 125/77 07/19/17 08:05 Pulse Ox 100 07/19/17 08:05 - Labs Result Diagrams: 07/19/17 05:50 07/19/17 05:50 Labs: Laboratory Results - last 24 hr 07/18/17 07/19/17 07/19/17 09:00 05:50 05:50 WBC 4.5 L RBC 4.24 Hgb 12.6 Hct 37.5 MCV 88.3 MCH 29.8 MCHC 33.8 RDW 12.4 Plt Count 189 Sodium 142 Potassium 3.7 Chloride 101 Carbon Dioxide 30 Anion Gap 15 BUN 7 Creatinine 0.8 Est GFR ( Amer) > 60 Est GFR (Non-Af Amer) > 60 Random Glucose 88 Calcium 8.5 Stool Leukocytes, Qual Negative Assessment & Plan (1) Abdominal pain Status: Acute (2) Gastritis Status: Acute - Assessment and Plan (Free Text) Plan: Iv hydration cont pain meds NPO for now Protonix GI eval.
--- NOTE | 2017-07-19 11:59 | CP.PCM.DIS ---
Provider - Provider Date of Admission: 07/18/17 00:41 Attending physician: Alejandro Mathis MD Time Spent in preparation of Discharge (in minutes): 30 Diagnosis - Discharge Diagnosis (1) Abdominal pain Status: Acute (2) Gastritis Status: Acute Hospital Course - Lab Results Lab Results: Micro Results 07/18/17 09:00 Stool Ova and Parasite Concentrate Exam - Final Most Recent Lab Values WBC 4.5 K/uL (4.8-10.8) L 07/19/17 05:50 RBC 4.24 Mil/uL (3.80-5.20) 07/19/17 05:50 Hgb 12.6 g/dL (12.0-16.0) 07/19/17 05:50 Hct 37.5 % (34.0-47.0) 07/19/17 05:50 MCV 88.3 fl (81.0-99.0) 07/19/17 05:50 MCH 29.8 pg (27.0-31.0) 07/19/17 05:50 MCHC 33.8 g/dL (33.0-37.0) 07/19/17 05:50 RDW 12.4 % (11.5-14.5) 07/19/17 05:50 Plt Count 189 K/uL (130-400) 07/19/17 05:50 MPV 8.5 fl (7.2-11.7) 07/17/17 20:24 Neut % (Auto) 28.3 % (50.0-75.0) L 07/17/17 20:24 Lymph % (Auto) 63.8 % (20.0-40.0) H 07/17/17 20:24 [place] % (Auto) 6.9 % (0.0-10.0) 07/17/17 20:24 Eos % (Auto) 0.6 % (0.0-4.0) 07/17/17 20:24 Baso % (Auto) 0.4 % (0.0-2.0) 07/17/17 20:24 Neut # (Auto) 1.1 K/uL (1.8-7.0) L 07/17/17 20:24 Lymph # (Auto) 2.5 K/uL (1.0-4.3) 07/17/17 20:24 [place] # (Auto) 0.3 K/uL (0.0-0.8) 07/17/17 20:24 Eos # (Auto) 0.0 K/uL (0.0-0.7) 07/17/17 20:24 Baso # (Auto) 0.0 K/uL (0.0-0.2) 07/17/17 20:24 pO2 25 mm/Hg (30-55) L 07/17/17 20:23 VBG pH 7.38 (7.32-7.43) 07/17/17 20:23 VBG pCO2 51 mmHg (40-60) 07/17/17 20:23 VBG HCO3 26.5 mmol/L 07/17/17 20:23 VBG Total CO2 31.8 mmol/L (22-28) H 07/17/17 20:23 VBG O2 Sat (Calc) 57.0 % (40-65) 07/17/17 20:23 VBG Base Excess 3.9 mmol/L (0.0-2.0) H 07/17/17 20:23 VBG Potassium 3.5 mmol/L (3.6-5.2) L 07/17/17 20:23 Sodium 142.0 mmol/L (132-148) 07/17/17 20:23 Chloride 105.0 mmol/L (98-107) 07/17/17 20:23 Glucose 87 mg/dL (65-105) 07/17/17 20:23 Lactate 1.1 mmol/L (0.7-2.1) 07/17/17 20:23 FiO2 21.0 % 07/17/17 20:23 Sodium 142 mmol/l (132-148) 07/19/17 05:50 Potassium 3.7 MMOL/L (3.6-5.0) 07/19/17 05:50 Chloride 101 mmol/L (98-107) 07/19/17 05:50 Carbon Dioxide 30 mmol/L (22-30) 07/19/17 05:50 Anion Gap 15 (10-20) 07/19/17 05:50 BUN 7 mg/dl (7-17) 07/19/17 05:50 Creatinine 0.8 mg/dl (0.7-1.2) 07/19/17 05:50 Est GFR ( Amer) > 60 07/19/17 05:50 Est GFR (Non-Af Amer) > 60 07/19/17 05:50 Random Glucose 88 mg/dL (65-105) 07/19/17 05:50 Calcium 8.5 mg/dL (8.4-10.2) 07/19/17 05:50 Total Bilirubin 0.5 mg/dl (0.2-1.3) 07/17/17 20:24 AST 22 U/L (14-36) 07/17/17 20:24 ALT 36 U/L (9-52) 07/17/17 20:24 Alkaline Phosphatase 49 U/L (38-126) 07/17/17 20:24 Total Protein 6.9 G/DL (6.3-8.2) 07/17/17 20:24 Albumin 3.9 g/dL (3.5-5.0) 07/17/17 20:24 Globulin 3.0 gm/dL (2.2-3.9) 07/17/17 20:24 Albumin/Globulin Ratio 1.3 (1.0-2.1) 07/17/17 20:24 Lipase 41 U/L (23-300) 07/17/17 20:24 Venous Blood Potassium 3.5 mmol/L (3.6-5.2) L 07/17/17 20:23 Urine Color Yellow (YELLOW) 07/17/17 21:00 Urine Clarity Clear (Clear) 07/17/17 21:00 Urine pH 5.5 (5.0-8.0) 07/17/17 21:00 Ur Specific [place] >= 1.030 (1.003-1.030) 07/17/17 21:00 Urine Protein 30 mg/dL (NEGATIVE) 07/17/17 21:00 Urine Glucose (UA) Neg mg/dL (Normal) 07/17/17 21:00 Urine Ketones Negative mg/dL (NEGATIVE) 07/17/17 21:00 Urine Blood Negative (NEGATIVE) 07/17/17 21:00 Urine Nitrate Negative (NEGATIVE) 07/17/17 21:00 Urine Bilirubin Negative (NEGATIVE) 07/17/17 21:00 Urine Urobilinogen 0.2 mg/dL (0.2-1.0) 02/09/18 21:00 Ur Leukocyte Esterase Neg [place]/uL (Negative) 07/17/17 21:00 Urine RBC (Auto) < 1 /hpf (0-3) 07/17/17 21:00 Urine Microscopic WBC < 1 /hpf (0-5) 07/17/17 21:00 Ur Squamous Epith Cells 2 /hpf (0-5) 07/17/17 21:00 Urine Bacteria Few (<OCC) H 07/17/17 21:00 Hyaline Casts 1 /hpf (0-2) 07/17/17 21:00 Stool Occult Blood Negative (NEGATIVE) 07/17/17 21:00 Stool Leukocytes, Qual Negative (NEGATIVE) 07/18/17 09:00 Urine Opiates Screen Negative (NEGATIVE) 07/17/17 20:38 Urine Methadone Screen Negative (NEGATIVE) 07/17/17 20:38 Ur Barbiturates Screen Positive (NEGATIVE) H 07/17/17 20:38 Ur Phencyclidine Scrn Negative (NEGATIVE) 07/17/17 20:38 Ur Amphetamines Screen Negative (NEGATIVE) 07/17/17 20:38 U Benzodiazepines Scrn Negative (NEGATIVE) 07/17/17 20:38 U Oth Cocaine Metabols Negative (NEGATIVE) 07/17/17 20:38 U Cannabinoids Screen Positive (NEGATIVE) H 07/17/17 20:38 C. difficile Ag & Toxin Negative (NEGATIVE) 07/18/17 09:00 - Hospital Course Hospital Course: This is a 41 y/o female admitted for episodes of vomiting and diarrhea and presented to ER with intractable abdominal pains. She was given pain meds but to no avail hence was admitted. She has a hx of H pylori gastritis. She was started on Protonix and IV hydration and pain meds and responded very well. She was discharged in stable condition. Discharge Exam - Head Exam Head Exam: NORMAL INSPECTION - Eye Exam Eye Exam: Normal appearance - Respiratory Exam Respiratory Exam: NORMAL BREATHING PATTERN - Cardiovascular Exam Cardiovascular Exam: REGULAR RHYTHM - GI/Abdominal Exam GI & Abdominal Exam: Normal Bowel Sounds - Neurological Exam Neurological exam: CN II-XII Intact, Oriented x3 - Psychiatric Exam Psychiatric exam: Normal Mood Discharge Plan - Follow Up Plan Condition: IMPROVED Disposition: HOME/ ROUTINE Additional Instructions: advised follow up with PMD Rx for protonix given
== END 2017-07-19 14:15 | disposition home or self-care (01) ==
LOC: H.ER 17:20 → H.ERHOLD 07-18 00:41 → H.MEDSURG1 07-18 02:30
PROVIDERS: ADMIT Family Medicine; ATTEND Family Medicine
DX: A08.4 Viral intestinal infection, unspecified (principal); K29.70 Gastritis, unspecified, without bleeding; F17.200 Nicotine dependence, unspecified, uncomplicated; Z86.19 Personal history of other infectious and parasitic diseases; Z98.51 Tubal ligation status; F45.9 Somatoform disorder, unspecified; G43.909 Migraine, unspecified, not intractable, without status migrainosus; F12.90 Cannabis use, unspecified, uncomplicated
CPT/HCPCS: 36415; 74177; 76705; 80048; 80053; 80324; 80345; 80346; 80349; 80353; 80358; 80361; 81003; 81025; 82803; 83690; 83992; 85025; 85027; 87045; 87177; 87209; 87230; 89055; 93005; 96361; 96374; 96375; 96376; 99284; C9113; G0328; G0378; J1630; J2270; J7040; Q9966; Q9967

== ENCOUNTER 2017-11-19 22:55 | Emergency (ER) | payer MEDICAID ==
[2017-11-19 23:11] VITALS: O2SAT 100
[2017-11-20] MEDS ORDERED: Sodium Chloride 0.9% 1,000 ML IV STA (00:41)
[2017-11-20 00:55] LABS: BASO % 0.3 % (0.0-2.0); EOS % 0.1 % (0.0-4.0); HEMOGLOBIN 13.2 g/dL (12.0-16.0); LYMPH # 1.1 K/uL (1.0-4.3); LYMPH % 11.8 % (20.0-40.0); MEAN CELL VOLUME 89.5 fl (81.0-99.0); MEAN CORPUSCULAR HEMOGLOBIN 30.4 pg (27.0-31.0); MEAN CORPUSCULAR HGB CONC 33.9 g/dL (33.0-37.0); MONO # 0.5 K/uL (0.0-0.8); MONO % 5.4 % (0.0-10.0); NEUT # 7.4 K/uL (1.8-7.0); NEUT % 82.4 % (50.0-75.0); RBC 4.36 Mil/uL (3.80-5.20); RED CELL DISTRIBUTION WIDTH 13.2 % (11.5-14.5)
[2017-11-20 01:04] LABS: ALB/GLOB RATIO 1.2 (1.0-2.1); ALBUMIN 4.1 g/dL (3.5-5.0); ALT/SGPT 31 U/L (9-52); AST/SGOT 16 U/L (14-36); BLOOD UREA NITROGEN 10 mg/dl (7-17); CALCIUM 8.5 mg/dL (8.4-10.2); GFR AFRICAN-AMERICAN > 60; GFR NON-AFRICAN AMERICAN > 60
[2017-11-20 01:27] LABS: SQUAMOUS EPITHIAL 2 /hpf (0-5); URINE BACTERIA RARE (<OCC); URINE BILIRUBIN NEGATIVE (NEGATIVE); URINE BLOOD MODERATE (NEGATIVE); URINE CLARITY TURBID (Clear); URINE COLOR YELLOW (YELLOW); URINE GLUCOSE (UA) NEG (Normal); URINE LEUKOCYTE ESTERASE LARGE Leu/uL (Negative); URINE PROTEIN 100 mg/dL (NEGATIVE); URINE UROBILINOGEN 0.2-1.0 mg/dL (0.2-1.0)
--- NOTE | 2017-11-20 02:40 | ED PDOC ---
HPI: Abdomen Time Seen by Provider: 11/20/17 00:00 Chief Complaint (Nursing): Abdominal Pain Chief Complaint (Provider): Abdominal Pain History Per: Patient History/Exam Limitations: no limitations Onset/Duration Of Symptoms: Days (x1), Intermittent Episodes Current Symptoms Are (Timing): Constant Quality Of Discomfort: "Pain" Additional Complaint(s): 42 year old female with a history of tubal ligation, migraines and gastritis presents to the ED with lower abdominal pain that started yesterday. She reports the pain was intermittent, but currently is constant. Patient denies fever, nausea, vomiting, diarrhea, dysuria, hematuria or any other medical complaints. She has been seen in this ED for intractable abdominal pain in the past. PMD: none provided. Past Medical History Reviewed: Historical Data, Nursing Documentation, Vital Signs Vital Signs: Last Vital Signs Temp 98.3 F 11/20/17 05:17 Pulse 78 11/20/17 05:17 Resp 16 11/20/17 05:17 BP 129/76 11/20/17 05:17 Pulse Ox 100 11/20/17 05:23 - Medical History PMH: Gastritis, Migraine Denies: Chronic Kidney Disease - Surgical History Surgical History: No Surg Hx - Family History Family History: States: Unknown Family Hx - Social History Current smoker - smoking cessation education provided: No Alcohol: None Drugs: Denies - Immunization History Hx Tetanus Toxoid Vaccination: No Hx Influenza Vaccination: No Hx Pneumococcal Vaccination: No - Home Medications Home Medications: Ambulatory Orders Medication Instructions Recorded Dicyclomine [Bentyl] 20 mg PO TID PRN #15 tab 07/16/17 Esomeprazole Magnesium [Nexium] 40 mg PO DAILY #10 07/16/17 Ibuprofen [Motrin] 600 mg PO Q6H PRN #20 tab 11/20/17 Nitrofurantoin Macrocrystals 100 mg PO BID #14 cap 11/20/17 [Macrobid] - Allergies Allergies/Adverse Reactions: Allergies Allergy/AdvReac Type Severity Reaction Status Date / Time No Known Allergies Allergy Verified 07/17/17 17:38 Review of Systems ROS Statement: Except As Marked, All Systems Reviewed And Found Negative Gastrointestinal: Positive for: Abdominal Pain (lower) Physical Exam - Reviewed Nursing Documentation Reviewed: Yes Vital Signs Reviewed: Yes - Physical Exam Appears: Positive for: Non-toxic, No Acute Distress Head Exam: Positive for: ATRAUMATIC, NORMAL INSPECTION, NORMOCEPHALIC Skin: Positive for: Normal Color, Warm, Dry Eye Exam: Positive for: EOMI, Normal appearance, PERRL Neck: Positive for: Normal, Painless ROM Cardiovascular/Chest: Positive for: Regular Rate, Rhythm. Negative for: Murmur Respiratory: Positive for: Normal Breath Sounds. Negative for: Respiratory Distress Gastrointestinal/Abdominal: Positive for: Normal Exam, Soft, Tenderness (slight suprapubic ) Extremity: Positive for: Normal ROM (upper and lower extremities) Neurologic/Psych: Positive for: Alert, Oriented (x3) - Laboratory Results Result Diagrams: 11/20/17 00:53 11/20/17 00:53 - ECG O2 Sat by Pulse Oximetry: 100 (RA) Pulse Ox Interpretation: Normal Medical Decision Making Medical Decision Making: Time: 00:41 Intial Plan: abdominal pain rule out UTI rule out stone --CMP --CBC with differentials --NS --Toradol 30 mg IV --Zofran 4 mg IV --Urine C&S --Urinalysis Time: 3:00 --Urine positive for UTI. CT will be done to rule out stones. Time: 3:07 --CT abd and pelvis Time 5:10 CT abd and pelvis: FINDINGS: The liver is decreased in attenuation consistent with fatty infiltration. The gallbladder, spleen, and pancreas appear grossly normal on this non- contrast study. There is fullness of the left renal pelvis with haziness in the fat surrounding the UPJ raising the possibility of acute infectious/inflammatory process. No obstructing calculi. Pelvic phleboliths similar to prior. Sigmoid diverticulosis. A normal appendix is identified axial images 102 through 116. The uterus and ovaries are grossly normal. IMPRESSION: LOBO ROBBINS | Preliminary Radiology Report PARAPROFESSIONAL AIDE (QA) DISCREPANCY? If there is a discrepancy between the preliminary and final interpretation, please notify [facility] via [email or web address]. If you do not have access to our QA portal, call our QA team at [phone] CONFIDENTIALITY STATEMENT This report is intended only for the use of the referring physician, and only in accordance with law, If you received this in error, call [phone] Page 2 of 2 Fullness of the left renal pelvis with haziness in the fat surrounding the UPJ raising the possibility of acute infectious/inflammatory process.Recommend correlation with urinalysis to exclude infectious/inflammatory process. --CT correlates with UTI. pt tolerated po. Patient given instructions and antibiotics for UTI. Scribe Attestation: Documented by Janice Vann, acting as a scribe for Froilan Gandhi MD Provider Scribe Attestation: All medical record entries made by the Scribe were at my direction and personally dictated by me. I have reviewed the chart and agree that the record accurately reflects my personal performance of the history, physical exam, medical decision making, and the department course for this patient. I have also personally directed, reviewed, and agree with the discharge instructions and disposition. Disposition - Clinical Impression Clinical Impression: UTI (urinary tract infection) - Patient ED Disposition Is Patient to be Admitted: No Counseled Patient/Family Regarding: Studies Performed, Diagnosis, Need For Followup - Disposition Referrals: Arnoldo Carey MD [Primary Care Provider] - Disposition: Routine/Home Disposition Time: 05:00 Condition: IMPROVED Additional Instructions: follow up with your primary doctor in 1-2 days return to the ED with any worsening or concerning symptoms Prescriptions: Ibuprofen [Motrin] 600 mg PO Q6H PRN #20 tab PRN Reason: Pain, Moderate (4-7) Nitrofurantoin Macrocrystals [Macrobid] 100 mg PO BID #14 cap Instructions: Urinary Tract Infection, Adult (DC) Forms: [employer] (Finnish), [facility] ED School/Work Excuse
[2017-11-20] MEDS ORDERED: Potassium Chloride 20 mEq ER Tab PO ONE ×2 (03:00→03:06)
[2017-11-20] MEDS ORDERED: Famotidine 20mg/50ml Premix IVPB STA (04:20)
[2017-11-20] MEDS ORDERED: Famotidine 20mg/50ml 20 MG/50 ML BAG IVPB ONE (04:25)
[2017-11-20 05:39] VITALS: BP 129/76; PULSE 78; RESP 16; TEMP 98.3
--- NOTE | 2017-11-20 10:27 | CT ---
PROCEDURE: CT Abdomen and Pelvis without intravenous contrast HISTORY: abd pain COMPARISON: 07/17/2017 CT abdomen and pelvis 07/17/2017 abdominal ultrasound TECHNIQUE: Unenhanced study. Neither oral nor intravenous contrast administered. Radiation dose: Total exam DLP = 453.57 mGy-cm. This CT exam was performed using one or more of the following dose reduction techniques: Automated exposure control, adjustment of the mA and/or kV according to patient size, and/or use of iterative reconstruction technique. FINDINGS: LOWER THORAX: Unremarkable. LIVER: Hepatic steatosis. No focal masses. No intrahepatic bile duct dilatation or perihepatic ascites. GALLBLADDER AND BILE DUCTS: Unremarkable. PANCREAS: Unremarkable. No gross lesion or ductal dilatation. SPLEEN: Unremarkable. ADRENALS: Unremarkable. No mass. KIDNEYS AND URETERS: Left kidney: Left kidney is edematous in the collecting system is prominent suggesting either recently passed calculus or perhaps pyelonephritis. The left renal vein is also dilated and this is of uncertain etiology or significance. Right kidney in ureter: Unremarkable. No hydronephrosis. No solid mass. VASCULATURE: Unremarkable. No aortic aneurysm. BOWEL: Thickening of the wall of the descending colon and transverse colon nonspecific finding perhaps under distention. Senescent colitis could also assume this appearance. The ascending colon is unremarkable. Constipation without fecal impaction or obstruction. APPENDIX: Unremarkable. Normal appendix. PERITONEUM: Unremarkable. No free fluid. No free air. LYMPH NODES: Unremarkable. No enlarged lymph nodes. BLADDER: Unremarkable. REPRODUCTIVE: Unremarkable. BONES: No acute fracture. OTHER FINDINGS: None. IMPRESSION: Edematous left kidney suggestive of either pyelonephritis. The presence of mild dilatation of the collecting system suggests the possibility of recently passed calculus. Senescent colitis. Concordant results (preliminary interpretation) provided by [facility]. Procedure Completed: 03:38 Preliminary ([facility]) Report: Dictated and Authenticated: 05:10 Final Interpretation: 10:25
== END 2017-11-20 05:24 | disposition home or self-care (01) ==
LOC: H.ER 22:55
DX: N39.0 Urinary tract infection, site not specified (principal); K52.9 Noninfective gastroenteritis and colitis, unspecified
CPT/HCPCS: 74176; 80053; 81003; 81025; 85025; 87086; 87181; 96360; 99285; J1885; J7030